=== PATIENT | male | born 1940 | race Caucasian/White ===

== ENCOUNTER → 2016-06-26 | Outpatient (CLI) | payer OTHER, BC ==
[~2016-06-26] MED LIST: ANDROGEL1.25 GM TRANSDERM; APAP500 PO; ASA5UEC PO; CARAFATE 1 GM TA1 G1 PO; CEFUROXIME500 MG PO; CIPRO500 MG PO; CO Q-1010 MG; ENDOCET 10-3251 EACH PO; FISH OIL 1,0001 EAC5 PO; FLAGYL500 MG PO; GLUCOPHAGE500 MG PO; GLUCOSAMIN-CHO1 EACH; HYDROCHLOROTH12.5 M1 PO; HYDROCODONE-AP1 EAC6 PO; IRON325 PO; KEFLEX500 MG PO; LIPITOR40 MG; LIPITOR40 MG PO; LISINOPRIL-HCT1 EAC1 PO; LISINOPRIL20 MG; MEDROL DOSPAK21 TA1 PO; MELOXICAM15 MG PO; METFORMIN HCL500 MG PO; MS CONTIN15 MG PO; MULTIVITAMINS1 EAC7 PO; NORCO 10-325 T1 EACH PO; OMEPRAZOLE40 MG PO; ORADENT 0.1% DEN5 G1; PAIN RELIEVER500 M3 PO; PERCOCET 10-321 EACH PO; PERCOCET 5-3251 EACH PO; SIMVASTATIN20 MG; TOPROL XL25 MG PO; TRADJENTA5 MG PO; TRAMADOL 50 MG50 MG PO; TRAMADOL HCL100 MG PO; TRIAMCINOLONE A80 G2 TOP; TYLENOL325 MG PO; ULTRA-LIGHT RO1 EACH MC; VITAMIN D2000 UNI1; VITAMIN E400 UNI2; XARELTO10 MG PO; ZPAK PO; flomax PO
== END | disposition home or self-care (01) ==
LOC: CAT 08:12
DX: M19.012 Primary osteoarthritis, left shoulder (principal); G89.29 Other chronic pain

== ENCOUNTER 2016-09-28 05:44 | Inpatient (IN) | payer OTHER, BC ==
[2016-09-14 13:39] LABS: HEMATOCRIT 46.1 % (42.0-52.0); HEMOGLOBIN 15.6 gm/dL (14.0-18.0); MCH 31.6 pg (26.0-34.0); MCHC 33.8 g/dL (28.0-37.0); MCV 93.4 fL (80.0-100.0); RBC 4.94 mil/uL (4.50-6.00); RDW 14.9 % (10.5-14.5); URINE BILIRUBIN NEGATIVE (Negative); URINE BLOOD NEGATIVE (Negative); URINE COLOR YELLOW; URINE GLUCOSE-RANDOM* NEGATIVE (Negative); URINE KETONES NEGATIVE (Negative); URINE LEUKOCYTES-REFLEX NEGATIVE (Negative); URINE PROTEIN (DIPSTICK) NEGATIVE (Negative); URINE SPECIFIC GRAVITY 1.015 (1.003-1.035); URINE UROBILINOGEN 0.2 E.U./dl (0.2-1.0); WBC 6.9 thou/uL (4.0-11.0)
[2016-09-14 13:50] LABS: CALCIUM 9.5 mg/dL (8.5-10.1); CREATININE 1.2 mg/dL (0.7-1.3); POTASSIUM 3.9 mmol/L (3.5-5.1)
[2016-09-14 13:51] LABS: PROTIME 10.8 Seconds (9.3-11.4)
[~2016-09-28] VITALS: Ht 172.7 cm; Wt 95.3 kg
[2016-09-28] VITALS (7 sets, daily range): BP systolic 95–164; BP diastolic 49–125
--- NOTE | ~2016-09-28 | O ---
[facility] [place] [address] OPERATIVE REPORT Name: ADRIA KLEIN Room #: 542-P ADM IN M.R.#: [id number] Admission: 09/28/16 Attend Phys: Clyde Resendiz MD Discharge: Date of : 44 Report #: [id number] THIS REPORT FOR: //name// CC: BARBRA Damon DATE OF SERVICE: 09/28/2016 PREOPERATIVE DIAGNOSIS: Left shoulder glenohumeral degenerative joint disease, severe. POSTOPERATIVE DIAGNOSIS: Left shoulder glenohumeral degenerative joint disease, severe. OPERATIVE PROCEDURE: Left total shoulder arthroplasty. SURGEON: Clyde Resendiz MD STRATEGIC PLANNING ANALYST: YVONNE Mosher ANESTHETIC: General. INDICATIONS: See hospital H and P. DATE OF OPERATION: 09/28/2016 IMPLANTS UTILIZED: We used a DePuy total shoulder system. We used a size 10 [place] standard stem. We used an anatomic proximal body 135 degrees. We used an eccentric humeral head 48 x 18 mm and we used a Global Jefferson Peg Glenoid size 48. DESCRIPTION OF PROCEDURE: After adequate general anesthesia had been obtained, the patient was placed in the beach chair position. The left shoulder and upper extremity was prepped and draped in the usual meticulous sterile fashion. An anterior incision was made in the shoulder, subQ divided sharply. Hemostasis obtained with electrocautery. The deltopectoral groove was identified, fascia released, cephalic vein mobilized medially. This layer was then developed. The conjoined tendon was then mobilized and retracted. The pectoralis was released about 1 cm. The biceps was identified. It was tenodesed to the pectoralis tendon with a Fiberwire suture and then transected. We then traced the biceps proximally and then released subscapularis on the lesser tuberosity and released ____. This was then tagged and retracted medially. The humerus was then externally rotated and delivered to allow for its osteotomy. We removed the humeral osteophytes. We placed the cutting guide into position and the anatomic neck was marked. We then cut the humeral head in 30 degrees of retroversion. [facility] [address] [place] [address] OPERATIVE REPORT Name: ADRIA KLEIN Room #: 542-P ADM IN M.R.#: [id number] Admission: 09/28/16 Attend Phys: Clyde Resendiz MD Discharge: Date of : 42 Report #: [id number] The humeral head protector was then placed on the cut surface. Attention was then directed to the glenoid. The subscapularis was released from the underlying capsule and then retracted medially. We then did a release of the capsule anteriorly, inferiorly and posteriorly to about the 5 o'clock position. We then exposed the entire glenoid. The patient did have some degree of posterior erosion of the humeral head, so I elected to do a 3 mm eccentric reaming. The 48 template was put on to the ____ glenoid and a guide pin was advanced into the glenoid. We then reamed the glenoid just down to the subacromial ____ smooth surface. The proximal and distal portion of the glenoid was likewise reamed with a groundhand. We then drilled over the central pin and placed the 48 mm drill guide over into the drilled tunnel and drilled the proximal and distal holes as well. The wound was irrigated copiously. We placed the trial into position and it fit very well. Then through the implant on the field bone graft was placed on the central peg, the cement was mixed. The ____ was thoroughly dried and cement was then placed within the peg holes and then the glenoid was impacted into position and held in position until the cement fully cured. Attention was redirected to the humeral component. The humerus was reamed to a size 10, which got good endosteal contact. We then placed the broach in 30 degrees of retroversion and impacted in place with thin cuts. We irrigated copiously and placed the trial head into position. The 48 x 18 seemed to give us the best reapproximation of his anatomy. The shoulder was then reduced. It translated about 40% posteriorly, seemed to sit very well proximal to distal and I was able to internally rotate to about 40 degrees ____ position and the subscapularis was easily reducible. We then removed the trial components, irrigated copiously and placed the permanent components in position. I did place drill holes, Fiberwire sutures through the lesser tuberosity. The shoulder was then reduced. We repaired the subscapularis by placing the sutures through the subscapularis and tying out in a [id number] fashion to repair the subscapularis down to the bone. I did place one interval suture as well proximally between the supraspinatus and the subscapularis. We irrigated copiously, placed vancomycin powder into the wound, placed a drain as well. The deltoid fascia was then closed with a running #2-0 Vicryl, subq closed with 2-0 Monocryl and skin closed with radha. Sterile compressive dressing was applied. By: [id number] [id number] Clyde Resendiz MD /nt
--- NOTE | ~2016-09-28 | EKG ---
[address] [address] ELECTROCARDIOGRAM REPORT Name: ADRIA KLEIN Room #: PRE IN [facility].#: [id number] Admission: Attend Phys: Clyde Resendiz MD Discharge: Date of : 42 Report #: [id number] THIS REPORT FOR: //name// [facility] Test Date: 2016-09-14 Test Time: 12:51:47 Pat Name: ADRIA KLEIN Department: Room: Gender: Rn Child: rosette landon : 1940 Requested By: Clyde Resendiz Order Number: [id number] MD: Geraldo Acuna Measurements Intervals [place] Rate: 81 P: 85 [place]: 154 QRS: 85 QRSD: 84 T: 52 QT: 371 QTc: 431 Interpretive Statements Sinus rhythm Borderline right axis deviation Compared to ECG 11/10/2015 08:47:56 No significant changes Electronically Signed On 09-17-2016 22:00:15 CDT by Geraldo Acuna [email or web address] <ELECTRONICALLY SIGNED> By: Geraldo Acuna MD 09/17/16 7670 1251 125 Geraldo Acuna MD /MIREYA
[~2016-09-28 05:44] MED LIST changes: +LINZESS290 MCG PO; +MIRALAX17 GM PO
[2016-09-29 00:07] VITALS: BP 114/60
[2016-09-29 03:04] VITALS: BP 122/71
[2016-09-29 06:29] LABS: HEMATOCRIT 43.1 % (42.0-52.0); HEMOGLOBIN 14.5 gm/dL (14.0-18.0)
[2016-09-29 12:33] VITALS: BP 122/73
[2016-09-29 12:42] VITALS: BP 122/73
== END 2016-09-29 13:58 | disposition home or self-care (01) | DRG 483 ==
LOC: TBA 05:44 → 5S 05:44 → PRE 06:33 → 5S 13:00
PROVIDERS: Orthopaedic Surgery
PROC: 0RRK0JZ Replacement of Left Shoulder Joint with Synthetic Substitute, Open Approach (ICD-10-PCS; principal; 2016-09-28)
DX: M19.012 Primary osteoarthritis, left shoulder (principal); I10 Essential (primary) hypertension; E78.00 Pure hypercholesterolemia, unspecified; K21.9 Gastro-esophageal reflux disease without esophagitis; E11.9 Type 2 diabetes mellitus without complications; Z96.651 Presence of right artificial knee joint; Z87.442 Personal history of urinary calculi
CPT/HCPCS: 10785; 50010; 50101; 50386; 50417; 50697; 50733; 50935; 51412; 51771; 52138; 53000; 54006; 55435; 56524; 56525; 56526; 56527; 56530; 57095; 62110; 62900; 64041; 64043; 70005

== ENCOUNTER → 2017-08-10 | Outpatient (CLI) | payer OTHER, BC | LOC: CAT 07:58 | PROVIDERS: Internal Medicine Cardiovascular Disease | DX: I71.4 Abdominal aortic aneurysm, without rupture (principal); J98.11 Atelectasis; M47.895 Other spondylosis, thoracolumbar region; K76.89 Other specified diseases of liver; Z95.5 Presence of coronary angioplasty implant and graft ==

== ENCOUNTER → 2018-05-23 | Outpatient (CLI) | payer OTHER, BC | LOC: CAT 08:00 | DX: I71.4 Abdominal aortic aneurysm, without rupture (principal); I72.3 Aneurysm of iliac artery; N28.1 Cyst of kidney, acquired; K76.89 Other specified diseases of liver; M47.816 Spondylosis without myelopathy or radiculopathy, lumbar region ==

== ENCOUNTER 2018-06-19 08:01 | Outpatient (CLI) | payer OTHER, BC ==
[~2018-06-19] VITALS: Ht 172.7 cm; Wt 102.1 kg
[2018-06-19 08:20] VITALS: BP 107/63
[2018-06-19 08:24] LABS: HEMATOCRIT 50.3 % (42.0-52.0); HEMOGLOBIN 16.8 gm/dL (14.0-18.0); MCH 32.6 pg (26.0-34.0); MCHC 33.4 g/dL (28.0-37.0); MCV 97.6 fL (80.0-100.0); RBC 5.15 mil/uL (4.50-6.00); RDW 16.3 % (10.5-14.5); WBC 7.2 thou/uL (4.0-11.0)
[2018-06-19 08:38] LABS: CALCIUM 10.4 mg/dL (8.5-10.1); CREATININE 1.2 mg/dL (0.7-1.3); POTASSIUM 4.4 mmol/L (3.5-5.1)
--- NOTE | 2018-06-19 09:02 | EKG ---
[place] [address] [facility] [place] [address] ELECTROCARDIOGRAM REPORT Name: ADRIA KLEIN [facility] [id number] ������������������ Admission: 06/19/18 ������������������ Attend Phys: Anibal Orona MD, Discharge: ������������������ Date of : 44 Report #: [id number] ����������������������������������������������������������������� [id number] THIS REPORT FOR: //name// [facility] Test Date: 2018-06-19 Test Time: 08:19:29 Pat Name: ADRIA KLEIN Department: Room: Gender: Switchboard Operator Assistant: Clarissa BROCK : 1940 Requested By: Anibal Orona Order Number: [id number] MD: Geraldo Acuna Measurements Intervals [place] Rate: 63 P: 27 [place]: 151 QRS: 34 QRSD: 85 T: 48 QT: 387 QTc: 397 Interpretive Statements Sinus rhythm Compared to ECG 09/14/2016 12:51:47 No significant changes Electronically Signed On 06-19-2018 9:02:41 CDT by Geraldo Acuna [email or web address] ��������������������������������������������� <ELECTRONICALLY SIGNED> ���������������������������������������� By: Geraldo Acuna MD ��������������������������������������������� 06/19/18901 8 8 Geraldo Acuna MD /MIREYA
[2018-06-19] MEDS ORDERED: TYLENOL EXTRA500 MG PO (09:07)
[2018-06-19] MEDS ORDERED: ASPIR 8181 MG PO (09:07)
[2018-06-19] MEDS ORDERED: LISINOPRIL-HCT1 EAC1 PO (09:08)
[2018-06-19] MEDS ORDERED: BYSTOLIC10 MG PO (09:09)
[2018-06-19] MEDS ORDERED: PROTONIX40 M1 PO (09:09)
[2018-06-19] MEDS ORDERED: TRAMADOL 50 MG50 MG PO (09:10)
[2018-06-19] MEDS ORDERED: TRIAMCINOLONE A80 G2 TOP (09:10)
--- NOTE | 2018-06-19 16:55 | NUR ---
PT ARRIVED TO THE UNIT AT APPROX 1600. PT ALERT AND ORIENTED, VSS, NO C/O PAIN, DENIES CHEST PAIN. PT POST CATH BEDREST X6 HOURS, PT COMMUNICATES UNDERSTANDING. RT GROIN SITE CDI, NO HEMATOMA, CHECKING FREQUENTLY. TELE PUT ON, ADMIT STRIP PRINTED. PT DENIES CONCERNS AT THIS TIME. WILL ACKNOWLEDGE AND IMPLEMENT ORDERS. CONTINUING TO MONITOR.
[2018-06-19 19:02] VITALS: BP 121/68
--- NOTE | 2018-06-19 19:52 | NUR ---
PT CONTINUES TO BE ALERT AND ORIENTED, C/O BACK PAIN, MANAGED WITH PO PAIN MEDS. PT REMAINS BEDREST, TOLERATING WELL. RIGHT GROIN SITE CDI, NO HEMATOMA. VSS. PT SIGNED HEALIENT DC INSTRUCTIONS, COMMUINICATES UNDERSTANDING. ORDERS PER DR. CONTRERAS FOR PT TO DISCHARGE AFTER 6 HOUR BEDREST, PT AWARE AND UNDERSTANDS. WILL CONT TO MONITOR AND FOLLOW POC.
--- NOTE | 2018-06-19 20:30 | NUR ---
Pt s/p IR procedure,coiling d/t AAA.OFF BEDREST AT 8PM,AMBULATED ON THE HALLWAY WITH NURSE W/O ANY DISTRESS.RIGHT GROIN REMAINED INTACT W/O HEMATOMA OR ACTIVE BLEEDING.ORDERS NOTED TO BE DISCHARGED AFTER BEDREST.VSS.SEE FLOW SHEET IN THE CHART.REVIEWED DISCHARGE INSTRUCTIONS WITH THE PT,VOICED UNDERSTANDING.DISCHARGED INSTRUCTIONS GIVEN TO PT.PT FAMILY AT BEDSIDE.TRANSPORTED VIA PRIVATE CAR BY HIS FAMILY.ALL PT'S BELONGINGS DISPOSED TO FAMILY.
--- NOTE | 2018-06-21 17:03 | CATHLAB ---
[facility] [address] [email or web address] [address] INVASIVE PROCEDURE REPORT Name: ADRIA KLEIN Room #: ENA Hernandez#: [id number] ������������� Admission: 06/19/18 ������������� Attend Phys: Anibal Orona, Discharge: ��� 06/19/18 ������������� ��� Date of : 44 Date of Service: 06/21/18 1703 �� Report #: [id number] �������� ��������������������������������������������[id number] THIS REPORT FOR: //name// APPROVED REPORT Study performed: 06/19/2018 10:38:43 Patient Details Patient Status: Out-Patient Room #: The patient is a 77 year-old male Event Personnel Anibal Orona Saw Runner, Nathalie Meadows RTR, UNDERWRITING CLERKS SUPERVISOR Monitor, Kayla Ann RN RN, Amada Yang RN RN, Katja Thakur RT(R)() Scrub Procedures Performed Art Access - R femoral artery* Left Heart Cath w/or w/o Coronaries [id number] [facility] [address] Initial Mod Sed Same Phys/QHP Gr5y 517356 Hemostasis with Manual pressure 22507 Mod Sed Same Phys/QHP Ea [id number] Indication Pre-op clearance, Abdominal Aortic Aneurysm Procedure Narrative The Right Groin^ was infiltrated with 1% Lidocaine subcutaneous anesthesia. A 6F 11CM BRITE-TIP sheath was inserted into the RFA^. Coronary angiography was performed using coronary diagnostic catheters. The right coronary system was accessed and visualized with a JR4 catheter. The left coronary system was accessed and visualized with a JL4 catheter. The left ventricle was accessed and visualized with a PIGTAIL catheter. Left ventriculogram was performed in 30 degree projection. Hemostasis was obtained with manual pressure following sheath removal without any complications. The patient tolerated the procedure well and there were no complications associated with the procedure. There was no hematoma. Intraoperative Conscious Sedation Sedation start time: 10:38 Case end Time: 13:53 Fentanyl 150 mcg Versed 3 mg CONSCIOUS SEDATION IS A COMBINED TOTAL OF LEFT HEART CATH AND ABDOMINAL AORTA/COILING PROCEDURES FLUORO TIME/DOSE/CONTRAST ARE ALSO A COMBINED TOTAL OF LEFT HEART [facility] [address] [place] [address] INVASIVE PROCEDURE REPORT Name: ERNIEADRIA J Room #: [facility] David#: [id number] ������������� Admission: 06/19/18 ������������� Attend Phys: Anibal Orona, Discharge: ��� 06/19/18 ������������� ��� Date of : 44 Date of Service: 06/21/18 1703 �� Report #: [id number] �������� ��������������������������������������������[id number] CATH AND ABDOMINAL AORTA/COILING PROCEDURES. 1MG-VERSED FOR LEFT HEART CATH; 50MG-FENTANYL FOR LEFT HEART CATH 2.15 MINUTES FOR LEFT HEART CATH; 3605.51tNsnm4 for LEFT HEART CATH; 357mGy for LEFT HEART CATH Fluoro Time: 41.26 minutes Dose: DAP 98.00 cGycm2 6652 mGy Contrast Type and Amount: Visipaque 290 ml Hemodynamics The aortic pressure is 120/71 mmHg with a mean of 91 mmHg. The left ventricular pressure is 121/14 mmHg with a mean of mmHg. The left ventricular end diastolic pressure is 19 mmHg. Conclusion #1 normal left jugular size and systolic function EF 60% #2 left main with mild disease giving rise to LAD and circumflex #3 LAD is mild to moderately disease mild calcification extends around the apex nonocclusive #4 circumflex OM with mild irregularities. This is a dominant vessel. #5 small nondominant right coronary artery Addition some plan: Dr. Gaines to follow with aortogram and KIM iliac coiling. This is in anticipation of aortic stent graft for aortic aneurysm repair. Mild coronary artery disease will treat this medically and aggressively. ��������������������������������������������� <ELECTRONICALLY SIGNED> ���������������������������������������� By: Anibal Orona MD, FACC ��������������������������������������������� 06/21/18 170 02 02 Anibal Orona MD, FACC /INF
[2018-06-24] MEDS ORDERED: ASPIR 8181 MG PO (09:26)
[2018-06-24] MEDS ORDERED: BYSTOLIC 5 MG5 M1 PO (09:28)
[2018-06-24] MEDS ORDERED: ASPIRIN EC81 M1 PO (09:30)
--- NOTE | 2018-06-24 16:53 | HC ---
[facility] [place] [address] CONSULTATION Name: ADRIA KLEIN Room #: DEP Karli Hernandez#: [id number] Admission: 06/19/18 ������������������ Attend Phys: Anibal Orona MD, Discharge: 06/19/18 ������������������ Date of : 42 Report #: [id number] THIS REPORT FOR: //name// CC: Michael Magana The patient was seen at Dr. Gaines's request after his catheterization. HISTORY OF PRESENT ILLNESS: The patient is a 77-year-old with an abdominal aortic aneurysm. This was found on routine surveillance and has not been asymptomatic. Aneurysm size seems to have increased from 4.8 cm in August 2017 to 5 cm currently. There are also aneurysms involving the common iliac arteries. Catheterization was done today for planning for stent graft implant. A large hypogastric aneurysm was seen at the time of angiogram today and this was coiled by Dr. Gaines. Dr. Gaines also coiled the inferior mesenteric artery in preparation for surgery. The catheterization also shows separate renal arteries on each side that are a bit lower than the main renal arteries and impede on landing zone territory for stent graft implant. PAST MEDICAL HISTORY: Significant for hypertension, hyperlipidemia and diabetes mellitus. MEDICATIONS: At home includes aspirin, Lipitor, lisinopril, hydrochlorothiazide, metformin, nebivolol, pantoprazole, testosterone and tramadol. ALLERGIES: None seen. CHART STATES THE PATIENT IS ALLERGIC TO ASPIRIN, BUT THE PATIENT STATES THAT THIS CAUSED AN ULCER IN THE PAST. SOCIAL HISTORY: The patient is a former smoker. He quit 30 years ago. FAMILY HISTORY: Not significant for aneurysm. REVIEW OF SYSTEMS: CONSTITUTIONAL: No weight change. No fever or chills. EYES: No vision change. HEENT: No headache, no new hearing problems. No sore throat. RESPIRATORY: Denies shortness of breath, sputum production. CARDIAC: Denies angina or palpitations. GASTROINTESTINAL: No nausea, vomiting or blood. GENITOURINARY: No urgency, frequency or blood. MUSCULOSKELETAL: Arthritis involving shoulder and knee joints, has had one shoulder replacement and expects to have the other replaced for symptoms. [facility] [address] [place] [address] CONSULTATION Name: ADRIA KLEIN Room #: DEP [facility] David#: [id number] Admission: 06/19/18 ������������������ Attend Phys: Anibal Orona MD, Discharge: 06/19/18 ������������������ Date of : 42 Report #: [id number] NEUROLOGIC: No motor or sensory loss. PSYCHIATRIC: No depression or anxiety. ENDOCRINE: No tremor. No goiter. PHYSICAL EXAMINATION: GENERAL: The patient is a pleasant fellow. He is oriented and appropriate, seems to have an endomorphic habitus. VITAL SIGNS: Blood pressure 121/56, heart rate 66, respiratory rate 12, O2 sat 93% on room air. HEENT: No scleral icterus, no arcus. NECK: No mass, no bruit. CHEST: Clear. HEART: Rhythm regular. ABDOMEN: Soft. EXTREMITIES: 2+ dorsalis pedis and posterior tibial pulses. NEUROLOGIC: No obvious motor or sensory dysfunction. PSYCHIATRIC: Oriented and appropriate, answers questions appropriately. I reviewed the findings of the angiogram with the patient and discussed options for treatment of the aneurysm. It may be that we need to cover the small accessory renal arteries, but I doubt this will be to the patient's detriment. Creatinine is 1.2 and the amount of the renal mass is approximately 10-15% that would be threatened. The alternative would be open surgery, which does not interest the patient. Risks include but are not limited to bleeding, infection, anesthesia risks, and as mentioned renal dysfunction, failure of the graft and need for surveillance was also reviewed. The patient understands all of this, risks and details and options and alternatives and he wishes to proceed with stent graft implant. We will organize this for separate admission. Thank you for the consult. ��������������������������������������������� <ELECTRONICALLY SIGNED> ���������������������������������������� By: Justyn Saucedo MD ��������������������������������������������� 06/24/18 1653 1644 0822 Justyn Saucedo MD /nt
== END 2018-06-19 20:30 | disposition home or self-care (01) ==
LOC: CATH 08:01 → 2N 15:30 → CATH 20:30
PROVIDERS: Internal Medicine Cardiovascular Disease
DX: I71.4 Abdominal aortic aneurysm, without rupture (principal); I25.10 Atherosclerotic heart disease of native coronary artery without angina pectoris; I70.1 Atherosclerosis of renal artery; I73.89 Other specified peripheral vascular diseases; I72.3 Aneurysm of iliac artery; I10 Essential (primary) hypertension; E78.5 Hyperlipidemia, unspecified; E11.9 Type 2 diabetes mellitus without complications; M19.90 Unspecified osteoarthritis, unspecified site; E78.00 Pure hypercholesterolemia, unspecified; K21.9 Gastro-esophageal reflux disease without esophagitis; Z86.2 Personal history of diseases of the blood and blood-forming organs and certain disorders involving the immune mechanism; Z95.5 Presence of coronary angioplasty implant and graft; Z87.891 Personal history of nicotine dependence; Z82.49 Family history of ischemic heart disease and other diseases of the circulatory system; Z87.19 Personal history of other diseases of the digestive system; Z96.651 Presence of right artificial knee joint; Z87.442 Personal history of urinary calculi; Z98.890 Other specified postprocedural states; Z79.899 Other long term (current) drug therapy; Z79.82 Long term (current) use of aspirin

== ENCOUNTER 2018-07-03 05:25 | Inpatient (IN) | payer OTHER, BC ==
[2018-06-25 10:31] LABS: ABSOLUTE NEUTROPHILS 4.1 thou/uL (1.4-8.2); BASOPHILS 0.4 % (0.0-2.0); EOSINOPHILS 5.9 % (0.0-3.0); HEMATOCRIT 46.4 % (42.0-52.0); HEMOGLOBIN 15.6 gm/dL (14.0-18.0); LYMPHOCYTES 22.4 % (24.0-44.0); MCH 32.9 pg (26.0-34.0); MCHC 33.7 g/dL (28.0-37.0); MCV 97.5 fL (80.0-100.0); MONOCYTES 9.2 % (1.0-8.0); PLATELET COUNT 246 thou/uL (150-400); POLYS 62.1 % (36.0-66.0); RBC 4.75 mil/uL (4.50-6.00); RDW 15.9 % (10.5-14.5); WBC 6.6 thou/uL (4.0-11.0)
[2018-06-25 10:43] LABS: APTT 27.4 Seconds (24.5-32.8)
[2018-06-25 10:45] LABS: ALBUMIN 3.5 g/dL (3.4-5.0); CALCIUM 9.7 mg/dL (8.5-10.1); CREATININE 1.1 mg/dL (0.7-1.3); POTASSIUM 4.3 mmol/L (3.5-5.1); TOTAL BILIRUBIN 0.9 mg/dL (<0.1-1.0); TOTAL PROTEIN 7.1 g/dL (6.4-8.2); URINE BILIRUBIN NEGATIVE (Negative); URINE BLOOD NEGATIVE (Negative); URINE CLARITY CLEAR; URINE COLOR YELLOW; URINE GLUCOSE-RANDOM* NEGATIVE (Negative); URINE KETONES NEGATIVE (Negative); URINE LEUKOCYTES NEGATIVE (Negative); URINE NITRITE NEGATIVE (Negative); URINE PROTEIN (DIPSTICK) NEGATIVE (Negative)
[~2018-07-03] VITALS: Ht 172.7 cm; Wt 110.1 kg
[2018-07-03] VITALS (11 sets, daily range): BP systolic 91–120; BP diastolic 36–61
--- NOTE | ~2018-07-03 | HC ---
[facility] [place] [address] CONSULTATION Name: ADRIA KLEIN Room #: 206-P ADM IN M.R.#: [id number] Admission: 07/03/18 ������������������ Attend Phys: Justyn Saucedo MD Discharge: ������������������ Date of : 42 Report #: [id number] THIS REPORT FOR: //name// CC: Grady Saucedo DATE OF SERVICE: 07/04/2018 HISTORY OF PRESENT ILLNESS: The patient is a 77-year-old male known to myself. I am asked to see postoperatively after an aortic stent graft repair. The modular device by Dr. Gaines, Dr. Caballero. He is postop day #1. He is alert and oriented. He has minimal discomfort. The aneurysm had increased to 5 cm. The procedure reading the report went well. He has remained hemodynamically stable overnight. He denies any PND or orthopnea. There has not been any chest pain or anginal complaints. He was compliant with medications. He has been on Bystolic 10, metformin, which was held and is being held. Prinzide 20/12.5, atorvastatin 40, aspirin, AndroGel, Ultram and Kenalog cream. ALLERGIES: ALLEGEDLY ASPIRIN. PAST MEDICAL HISTORY: Positive for hypertension, hypercholesterolemia, aortic aneurysm, chronic kidney disease, nephrolithiasis, prior knee and shoulder arthroplasties. DJD. SOCIAL HISTORY: He is no current social alcohol, no tobacco. He is retired, 4 cups of coffee a day. He is not . FAMILY HISTORY: Father premature coronary disease. Mother had cancer. LABORATORY DATA: Sodium 140, potassium 4.3, creatinine 1.1, glucose 139. Liver function tests were normal. H and H 13 and 39, white count 9.1, platelets 255. PHYSICAL EXAMINATION: GENERAL: Pleasant, alert. VITAL SIGNS: Blood pressure 120/62, pulse 80s. HEENT: Eyes reveal xanthelasmas. Pharynx is clear. NECK: Shows preserved upstrokes without JVD or bruits. LUNGS: Clear anteriorly. CARDIOVASCULAR: Regular rate and rhythm, S1, S2. ABDOMEN: Slightly distended, although nontender. EXTREMITIES: Bandage over the incisions over the bilateral femoral arteries. Distal pulses are intact. MUSCULOSKELETAL: Gross joint deformity. NEUROLOGIC: Intact. ASSESSMENT: [address] [address] CONSULTATION Name: ADRIA KLEIN Room #: 206-P [facility] [place] M.R.#: [id number] Admission: 07/03/18 ������������������ Attend Phys: Justyn Saucedo MD Discharge: ������������������ Date of : 44 Report #: [id number] 1. Status post aortic stent graft repair, postop day 1, stable. 2. Hypertension. 3. Hypercholesterolemia. 4. Degenerative joint disease. 5. Diabetes. RECOMMENDATIONS AND PLAN: We will hold metformin until tomorrow, probable discharge tomorrow. Transferred to CCU. We will restart home medications. Slowly increase his activity as tolerated. He is doing well postop day 1 stent graft repair. ��������������������������������������������� ���������������������������������������� By: ��������������������������������������������� 0848 0049 Anibal Orona MD, FACC /nt
[~2018-07-03 05:25] MED LIST changes: +ASPIR 8181 MG PO; +ASPIRIN EC81 M1 PO; +BYSTOLIC 5 MG5 M1 PO; +BYSTOLIC10 MG PO; +PROTONIX40 M1 PO; +TYLENOL EXTRA500 MG PO
--- NOTE | 2018-07-03 16:55 | NUR ---
PT ADMITTED TO ROOM 241 S/P AAA REPAIR. PT'S NIECE WITH PT. PT AND NIECE ORIENTED TO ROOM AND UNIT. PT HAS Pancho BELL, ON CARDENE GTT TITRATE TO MAINTAIN SBP <130. PT ARRIVED ON 4L NC. L AND R GROIN DRESSINGS C/D/I. PT C/O BACK PAIN, PRN PAIN MEDS EFFECTIVE. PT A/O X 4. POC GOALS ESTABLISHED AND IMPLEMENTED.
[2018-07-04] VITALS (13 sets, daily range): BP systolic 93–140; BP diastolic 53–76
[2018-07-04 05:27] LABS: MCH 32.2 pg (26.0-34.0); MCHC 33.3 g/dL (28.0-37.0); MCV 96.7 fL (80.0-100.0); RBC 4.04 mil/uL (4.50-6.00); RDW 15.8 % (10.5-14.5); WBC 9.1 thou/uL (4.0-11.0)
--- NOTE | 2018-07-04 05:39 | NUR ---
ASSUMED CARE OF PT. AT 1900. PT. IS ALERT AND ORIENTED X4. GCS 15, PT. IS CALM AND COOPERATIVE. PT. MAINTAINS HEMODYNAMIC STABILITY WITHOUT CARDENE GTT. INSULIN GTT TITRATED CHARTED. PT. IS NSR ON MONITOR AND SATS ABOVE 95% WITH 4L NC O2. URINARY OUTPUT IS ADEQUATE. NO HEMATOMA FORMATION AND GROIN SITES. LEFT RADIAL ART LINE REMAINS INTACT. PLAN OF CARE IS TO CONTINUE TO MONITOR HEMODYNAMIC STABILTY OF PT. AND INSULIN GTT. WILL CONTINUE TO MONITOR.
[2018-07-04 05:40] LABS: CALCIUM 8.1 mg/dL (8.5-10.1); CREATININE 1.1 mg/dL (0.7-1.3); POTASSIUM 4.3 mmol/L (3.5-5.1)
--- NOTE | 2018-07-04 08:21 | NUR ---
ANESTHESIA WILL COME TO DISCONTINUE ARTERIAL LINE LEFT RADIAL. ASKED BY ANESTHESIA TO OBTAIN LIDOCAINE AND SUTURE EQUIPMENT.
--- NOTE | 2018-07-04 09:43 | NUR ---
LEFT RADIAL ARTERIAL LINE DISCONTINUED AND SUTURE, DRESSING PLACED BY DR. JIMENEZ.
--- NOTE | 2018-07-04 11:19 | NUR ---
PT AMBULATED HALLS WELL, RUIZ DISCONTINUED AND PT OFF OXYGEN.
--- NOTE | 2018-07-04 14:02 | NUR ---
PT VOIDED 100ML URIEN CHECK PVR AND WAS 130ML.
--- NOTE | 2018-07-04 15:15 | EKG ---
[place] [address] [facility] [place] [address] ELECTROCARDIOGRAM REPORT Name: ADRIA KLEIN Room #: 241-P ADM IN M.R.#: [id number] ������������������ Admission: 07/03/18 ������������������ Attend Phys: Justyn Saucedo MD Discharge: ������������������ Date of : 44 Report #: [id number] ����������������������������������������������������������������� [id number] THIS REPORT FOR: //name// [facility] Test Date: 2018-07-04 Test Time: 09:35:29 Pat Name: ADRIA KLEIN Department: Room: 241 P Gender: M Environmental Engineering Aide: Clarissa BROCK : 1940 Requested By: Anibal Orona Order Number: [id number] MD: Geraldo Acuna Measurements Intervals [place] Rate: 82 P: 64 DC: 163 QRS: 20 QRSD: 83 T: 51 QT: 354 QTc: 414 Interpretive Statements Sinus rhythm Compared to ECG 06/19/2018 08:19:29 No significant changes Electronically Signed On 07-04-2018 15:15:32 CDT by Geraldo Acuna [email or web address] ��������������������������������������������� <ELECTRONICALLY SIGNED> ���������������������������������������� By: Geraldo Acuna MD ��������������������������������������������� 07/04/18 1515 4 4 Geraldo Acuna MD /MIREYA
--- NOTE | 2018-07-04 15:18 | NUR ---
REPORT CALLED LEONOR JENKINS.
--- NOTE | 2018-07-04 17:37 | NUR ---
PT TRANSFERED FROM ICU IN STABLE CONDITION. ALERT AND ORIENTED. DENIED HAVING PAIN OR DISCOMFORT. VSS. PT ORIENTED TO THE ROOM AND THE CALL SYSTEM. HAS RIGHT AND LEFT GROIN INCISION C/D/I. NO HEMATOMA NOTED. BRUISING NOTED ON THE RIGHT GROIN. NO CARDIAC OR RESPIRATORY DISTRESS NOTED. WILL CONTINUE TO MONITOR.
[2018-07-05 00:11] VITALS: BP 145/64
[2018-07-05 04:39] VITALS: BP 143/63
--- NOTE | 2018-07-05 05:54 | NUR ---
ASSUMED PT CARE AT 1900. VS EXCEPT TEMP WHICH WAS 100.1. TYLENOL GIVEN, FEVER CAME DOWN TO 98.2. PT COMPLAINED OF NO PAIN. R GROIN CDI, STILL BRUISED BUT HEALING. LEFT GROIN CDI, NOP BRUISING PT RESTED WELL ALL NIGHT. GOOD URINE OUTPUT. PT IS STABLE, WILL CONTINUE TO MONITOR PER POC.
[2018-07-05 07:35] VITALS: BP 168/89
[2018-07-05] MEDS ORDERED: ATORVASTATIN CA40 MG PO (08:23)
[2018-07-05] MEDS ORDERED: BYSTOLIC10 MG PO (08:23)
[2018-07-05] MEDS ORDERED: HYDROCODON-ACE1 EAC7 PO (08:58)
[2018-07-05 11:34] VITALS: BP 108/58
[2018-07-05 12:22] VITALS: BP 108/58
--- NOTE | 2018-07-05 13:16 | NUR ---
ASSESSMENT DOCUMENTED. PT ALERT AND ORIENTED. VSS. DENIED HAVING PAIN OR DISCOMFORT. ORDERS GIVEN TO DISCHARGE PT TO HOME. DISCHARGE INSTRUCTIONS GIVEN TO PT. PT VERBERLIZED UNDERSTANDING.
--- NOTE | 2018-07-07 12:06 | O ---
[facility] [place] [address] OPERATIVE REPORT Name: ADRIA KLEIN Room #: 206-P [facility] M.R.#: [id number] Admission: 07/03/18 ������������������ Attend Phys: Justyn Saucedo MD Discharge: 07/05/18 ������������������ Date of : 44 Report #: [id number] THIS REPORT FOR: //name// CC: Grady Saucedo DATE OF SERVICE: 07/03/2018 PREOPERATIVE DIAGNOSIS: Abdominal aortic aneurysm. POSTOPERATIVE DIAGNOSIS: Abdominal aortic aneurysm. OPERATION: Stent graft implant for abdominal aortic aneurysm with intraoperative arteriograms. SURGEON: Justyn Saucedo MD and Michael Gaines MD ANESTHESIA: General. INDICATIONS: The patient is a 77-year-old with infrarenal abdominal aortic aneurysm and ectatic iliac arteries. 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 TECHNIQUE: After general anesthesia was established, exposure was obtained of both femoral arteries by groin incisions. Common, deep and superficial femoral arteries were controlled on the right and the good length of common femoral artery was controlled on the left. Heparin 10,000 units were given and 1000 units additional was given each hour as appropriate. On each side, the Amplatz needle was used followed by guidewire and the arterial sheath for femoral artery access through the sheath. A 0.035 guidewire, Berenstein catheter and then Mariaelena wire were placed for access. Through the left side, a femoral cutdown was made and a 16-Greek sheath was placed. Through the right side, similar procedure was done. A femoral artery catheter was placed and a 16-Greek sheath was placed over the guidewire. Through the left side, a 23 mm x 14.5 mm x 18 cm trunk was placed under fluoroscopic guidance. This was placed after Dr. Gaines had performed occlusion of the accessory left renal artery with an Amplatz plug and the right accessory renal artery with a set of coils. The main body was positioned under fluoroscopic guidance using a guiding catheter having been placed in the right main renal orifice. When we were happy with the position of the main component, the contralateral limb was accessed [address] [address] OPERATIVE REPORT Name: ADRIA KLEIN Room #: 206-P [facility] M.R.#: [id number] Admission: 07/03/18 ������������������ Attend Phys: Justyn Saucedo MD Discharge: 07/05/18 ������������������ Date of : 44 Report #: [id number] through the right side. We measured the distance from the contralateral gate to the hypogastric artery on the right and ultimately decided to place a 14.5 mm x 7 cm lithographic proofer apprentice. This was placed in the contralateral gate under fluoroscopic guidance and then, we completed the right side by placing a 27 mm x 14 cm limb. This was positioned to and just at the right hypogastric takeoff in a dilated area of common iliac artery. To complete the left side, a flush arteriogram was done to identify the previously occluded hypogastric takeoff and then, a 12 mm x 12 cm limb was placed to extend from the fully deployed main component down to the external iliac artery. When all of the components were in place, a noncompliant balloon was used to fully dilate. When all of the components had been fully expanded, then an arteriogram was taken. The arteriogram showed excellent position of the main component at the level of the renal arteries and good apposition through. A final arteriogram was taken that showed no evidence of leak and no cuff was placed. Good position of the grafts. Satisfied with the stent graft position, the dilators were replaced in the sheaths. The sheaths and dilators were removed and then the Mariaelena wires were removed. The arteriotomies were closed with interrupted Prolene and then flow was reestablished. Protamine was given to reverse the heparin. When hemostasis was satisfactory, the groin wounds were closed in the usual fashion. The patient was taken to the recovery area in good condition with good distal circulation. All counts were reported as correct. ��������������������������������������������� <ELECTRONICALLY SIGNED> ���������������������������������������� By: Justyn Saucedo MD ��������������������������������������������� 07/07/18 1206 [id number] 1824 Justyn Saucedo MD /nt
== END 2018-07-05 13:35 | disposition home or self-care (01) | DRG 269 ==
LOC: ICU 05:25 → TBA 05:25 → PRE 06:13 → ICU 14:59 → PRE 15:06 → 2N 07-04 15:31
PROVIDERS: Physician Assistant; ADMIT Surgery Vascular Surgery
DX: I71.4 Abdominal aortic aneurysm, without rupture (principal); E78.00 Pure hypercholesterolemia, unspecified; N18.9 Chronic kidney disease, unspecified; Z96.659 Presence of unspecified artificial knee joint; Z96.619 Presence of unspecified artificial shoulder joint; M19.90 Unspecified osteoarthritis, unspecified site; E11.22 Type 2 diabetes mellitus with diabetic chronic kidney disease; K21.9 Gastro-esophageal reflux disease without esophagitis; I12.9 Hypertensive chronic kidney disease with stage 1 through stage 4 chronic kidney disease, or unspecified chronic kidney disease; I65.29 Occlusion and stenosis of unspecified carotid artery; E78.5 Hyperlipidemia, unspecified; Z88.6 Allergy status to analgesic agent; Z87.442 Personal history of urinary calculi; Z82.49 Family history of ischemic heart disease and other diseases of the circulatory system; Z80.9 Family history of malignant neoplasm, unspecified
CPT/HCPCS: 10081; 10204; 47375; 48888; 50010; 50101; 50386; 50455; 51078; 51751; 54118; 56524; 56525; 56526; 56531; 56668; 56760; 57093; 62110; 62900; 65020; 65040; 70005

== ENCOUNTER → 2018-08-26 | Outpatient (CLI) | payer OTHER, BC ==
[~2018-08-26] MED LIST changes: +ATORVASTATIN CA40 MG PO; +HYDROCODON-ACE1 EAC7 PO
[2018-08-26 08:12] LABS: CREATININE 1.3 mg/dL (0.7-1.3)
== END ==
LOC: CAT 07:24
PROVIDERS: Nuclear Medicine Nuclear Cardiology
DX: Z01.812 Encounter for preprocedural laboratory examination (principal); I71.4 Abdominal aortic aneurysm, without rupture; I74.5 Embolism and thrombosis of iliac artery; M47.815 Spondylosis without myelopathy or radiculopathy, thoracolumbar region; J98.4 Other disorders of lung; K76.89 Other specified diseases of liver; Z95.828 Presence of other vascular implants and grafts; Z88.8 Allergy status to other drugs, medicaments and biological substances